=== PATIENT | female | born 1930 | race Hispanic/Latino ===

== ENCOUNTER 2018-04-04 12:47 | Emergency (ER) | payer MEDICARE ==
[2018-04-04 13:06] VITALS: TEMP 97.9
[2018-04-04] MEDS ORDERED: Tdap Vaccine 0.5 ml Vial (10-64 yrs) IM ONE ×2 (13:37→13:43)
--- NOTE | 2018-04-04 13:42 | ED PDOC ---
HPI: Trauma/Fall - HPI Time Seen by Provider: 04/04/18 13:16 Chief Complaint (Nursing): Upper Extremity Problem/Injury Chief Complaint (Provider): Upper Extremity Problem/Injury History Per: Patient History/Exam Limitations: no limitations Onset/Duration Of Symptoms: Hrs (x7) Associated Symptoms: Dizziness (mild). denies: LOC Additional Complaint(s): 88 y/o female with history of myasthenia gravis and lung CA presents to ER for evaluation s/p a slip and fall in bathroom this morning around 6 am. Patient reports sustaining trauma to her face and left wrist. She has recall of events and reports mild dizziness with nasal and facial pain. Patient reports left wrist laceration on thenar eminence. She denies headache, loss of consciousness, neck pain, change in vision, recent crisis of myasthenia gravis or taking any blood thinners or aspirin. PMD: in [facility] Neurologist: at [facility] Past Medical History Reviewed: Historical Data, Nursing Documentation, Vital Signs Vital Signs: Last Vital Signs Temp 97.9 F 04/04/18 13:04 Pulse 90 04/04/18 13:04 Resp 20 04/04/18 13:04 BP 172/98 H 04/04/18 13:04 Pulse Ox 98 04/04/18 13:04 - Medical History PMH: Anxiety Denies: Chronic Kidney Disease Other PMH: myasthenia gravis - Surgical History Other surgeries: Lung CA - Family History Family History: States: Unknown Family Hx - Social History Current smoker - smoking cessation education provided: No Alcohol: None Drugs: Denies - Immunization History Hx Tetanus Toxoid Vaccination: No Hx Influenza Vaccination: Yes Hx Pneumococcal Vaccination: No - Allergies Allergies/Adverse Reactions: Allergies Allergy/AdvReac Type Severity Reaction Status Date / Time No Known Allergies Allergy Verified 04/04/18 13:06 Review of Systems ROS Statement: Except As Marked, All Systems Reviewed And Found Negative Constitutional: Positive for: Other (Facial pain) Eyes: Negative for: Vision Change Musculoskeletal: Positive for: Hand Pain (Left wrist). Negative for: Neck Pain Skin: Positive for: Other (Laceration to left wrist) Neurological: Positive for: Dizziness (mild). Negative for: Headache Physical Exam - Reviewed Nursing Documentation Reviewed: Yes Vital Signs Reviewed: Yes - Physical Exam Appears: Positive for: Non-toxic, No Acute Distress Head Exam: Negative for: ATRAUMATIC (Extensive facial ecchymosis and edema) Eye Exam: Positive for: EOMI, PERRL, Other (Raccoon eyes. Extraocular muscles intact) ENT: Positive for: Other (Nasal septum ecchymosis and edema) Neck: Positive for: Normal, Painless ROM, Supple Cardiovascular/Chest: Positive for: Regular Rate, Rhythm, Chest Non Tender. Negative for: Murmur Respiratory: Positive for: Normal Breath Sounds. Negative for: Wheezing Gastrointestinal/Abdominal: Positive for: Normal Exam, Soft. Negative for: Tenderness Back: Positive for: Normal Inspection. Negative for: L CVA Tenderness, R CVA T enderness Extremity: Positive for: Normal ROM, Other (3 cm linear laceration to left wrist) Neurologic/Psych: Positive for: Alert, Oriented (x3), Gait (stable), Other (Strength intact) - Laboratory Results Result Diagrams: 04/04/18 14:05 04/04/18 13:39 - ECG ECG: Positive for: Interpreted By Me ECG Rhythm: Positive for: Sinus Rhythm. Negative for: ST/T Changes Rate: 70 O2 Sat by Pulse Oximetry: 98 (RA) Pulse Ox Interpretation: Normal Medical Decision Making Medical Decision Makin --Workup for trauma and fall --CT Head W/O Contrast --CT Cervical Spine W/O Contrast --CT Maxillofacial W/O Contrast --CXR --Wrist X-Ray --Labs --Laceration repair procedure note laceration repair simple complexity 4cm irrigated and anesthestized w lidocaine 2% 5 4-0 nylon sutures placed w good wound approximation bacitracin placed followup PMD for removal 6-7 days. wound care discussed and sterile dressing placed [id number] Wrist X-Ray FINDINGS: BONES: Osteopenia. No acute fracture. JOINTS: Diffuse joint space narrowing with spurring. SOFT TISSUES: Normal. OTHER FINDINGS: None. IMPRESSION: No demonstrated acute fracture or dislocation. CXR FINDINGS: LUNGS: Stable chronic prominence of the bilateral interstitial markings. Surgical clip in the right paramediastinal region. PLEURA: Tenting of the right hemidiaphragm, stable. No significant pleural effusion identified, no pneumothorax apparent. CARDIOVASCULAR: Aortic atherosclerotic calcifications. Cardiomediastinal silhouette stably enlarged. OSSEOUS STRUCTURES: Unchanged. VISUALIZED UPPER ABDOMEN: Normal. OTHER FINDINGS: Stable tracheal deviation to the right. IMPRESSION: No active disease. Scribe Attestation: Documented by Meenakshi Villarreal, acting as a scribe for Jose Rehman MD. Provider Scribe Attestation: All medical record entries made by the Scribe were at my direction and personally dictated by me. I have reviewed the chart and agree that the record accurately reflects my personal performance of the history, physical exam, medical decision making, and the department course for this patient. I have also personally directed, reviewed, and agree with the discharge instructions and disposition. Disposition - Clinical Impression Clinical Impression: Facial trauma, Wrist laceration, Nasal bone fractures - Patient ED Disposition Is Patient to be Admitted: No Counseled Patient/Family Regarding: Studies Performed, Diagnosis, Need For Followup, Rx Given - Disposition Referrals: Joselo Cedeño MD [Staff Provider] - Disposition: Routine/Home Disposition Time: 16:00 Condition: STABLE Additional Instructions: have sutures removed in 6-7 days via your doctor or clinic, return to ER if need-be use bacitracin 2x daily as directed Instructions: Wound Care (DC), Laceration Repair With Stitches (DC) Forms: [employer] ([place]an)
--- NOTE | 2018-04-04 13:59 | RAD ---
Date of service: 04/04/2018 HISTORY: SOB COMPARISON: Chest radiograph dated 03/19/2016. FINDINGS: LUNGS: Stable chronic prominence of the bilateral interstitial markings. Surgical clip in the right paramediastinal region. PLEURA: Tenting of the right hemidiaphragm, stable. No significant pleural effusion identified, no pneumothorax apparent. CARDIOVASCULAR: Aortic atherosclerotic calcifications. Cardiomediastinal silhouette stably enlarged. OSSEOUS STRUCTURES: Unchanged. VISUALIZED UPPER ABDOMEN: Normal. OTHER FINDINGS: Stable tracheal deviation to the right. IMPRESSION: No active disease.
--- NOTE | 2018-04-04 14:00 | RAD ---
Date of service: 04/04/2018 PROCEDURE: Left Wrist Radiographs. HISTORY: fall trauma COMPARISON: None. FINDINGS: BONES: Osteopenia. No acute fracture. JOINTS: Diffuse joint space narrowing with spurring. SOFT TISSUES: Normal. OTHER FINDINGS: None. IMPRESSION: No demonstrated acute fracture or dislocation.
[2018-04-04] MEDS ORDERED: Lidocaine 2% Inj (20ml) IJ STA (14:07)
[2018-04-04] MEDS ORDERED: Lidocaine 2% Inj (20ml) ONE (14:15)
[2018-04-04 14:40] LABS: BASO % 0.3 % (0.0-2.0); EOS % 0.3 % (0.0-4.0); HEMOGLOBIN 11.3 g/dL (12.0-16.0); LYMPH # 0.5 K/uL (1.0-4.3); LYMPH % 8.6 % (20.0-40.0); MEAN CELL VOLUME 92.4 fl (81.0-99.0); MEAN CORPUSCULAR HEMOGLOBIN 30.9 pg (27.0-31.0); MEAN CORPUSCULAR HGB CONC 33.5 g/dL (33.0-37.0); MEAN PLATELET VOLUME 8.5 fl (7.2-11.7); MONO # 0.6 K/uL (0.0-0.8); NEUT # 4.8 K/uL (1.8-7.0); NEUT % 80.8 % (50.0-75.0); PLATELET COUNT 265 K/uL (130-400); RBC 3.66 Mil/uL (3.80-5.20); RED CELL DISTRIBUTION WIDTH 13.7 % (11.5-14.5); WHITE BLOOD COUNT 5.9 K/uL (4.8-10.8)
[2018-04-04 14:51] LABS: ALB/GLOB RATIO 1.4 (1.0-2.1); ALBUMIN 3.7 g/dL (3.5-5.0); ALT/SGPT 20 U/L (9-52); AST/SGOT 23 U/L (14-36); BLOOD UREA NITROGEN 27 mg/dl (7-17); GFR NON-AFRICAN AMERICAN > 60
[2018-04-04 15:36] LABS: BANDS 2 % (0-2); BASOPHIL 1 % (0-2); LYMPHOCYTE 2 % (20-50); METAMYELOCYTE 1 % (0-0); MONOCYTE 6 % (0-10); MYELOCYTE 2 % (0-0); NEUTROPHIL 85 % (42-75); REACTIVE LYMPHOCYTES 1 % (0-0); TOTAL CELLS COUNTED 100
[2018-04-04 15:37] LABS: HYPOCHROMIC SLIGHT; PLATELET ESTIMATE NORMAL (NORMAL)
--- NOTE | 2018-04-04 15:44 | CT ---
Date of service: 04/04/2018 PROCEDURE: CT HEAD WITHOUT CONTRAST. HISTORY: r/o ICH COMPARISON: None available. TECHNIQUE: Axial computed tomography images were obtained through the head/brain without intravenous contrast. Radiation dose: Total exam DLP = 725.57 mGy-cm. This CT exam was performed using one or more of the following dose reduction techniques: Automated exposure control, adjustment of the mA and/or kV according to patient size, and/or use of iterative reconstruction technique. FINDINGS: HEMORRHAGE: No intracranial hemorrhage. BRAIN: No mass effect or edema. Atrophy. Chronic microvascular ischemic changes. VENTRICLES: Unremarkable. No hydrocephalus. CALVARIUM: Unremarkable. PARANASAL SINUSES: Unremarkable as visualized. No significant inflammatory changes. MASTOID AIR CELLS: Unremarkable as visualized. No inflammatory changes. OTHER FINDINGS: Bilateral nasal bone fractures. IMPRESSION: No acute intracranial pathology. Bilateral nasal bone fractures.
--- NOTE | 2018-04-04 15:46 | CT ---
Date of service: 04/04/2018 PROCEDURE: CT MAXILLOFACIAL BONES WITHOUT CONTRAST HISTORY: facial trauma include jaw COMPARISON: None available. TECHNIQUE: Contiguous axial CT images of the maxillofacial bones were obtained. Coronal and sagittal reformats were generated. Radiation dose: Total exam DLP = 745.23 mGy-cm. This CT exam was performed using one or more of the following dose reduction techniques: Automated exposure control, adjustment of the mA and/or kV according to patient size, and/or use of iterative reconstruction technique. FINDINGS: NASAL BONES: Minimally depressed bilateral nasal bone fractures ORBITS: Unremarkable. PARANASAL SINUSES/ MASTOIDS: Clear. MAXILLA: Unremarkable. MANDIBLE/ TEMPOROMANDIBULAR JOINTS: Unremarkable. SKULL BASE: Unremarkable. TEMPORAL BONES: Middle ears and mastoid grossly unremarkable. OTHER FINDINGS: Minimally depressed bilateral nasal bone fractures with overlying soft tissue swelling IMPRESSION: Unremarkable non contrast enhanced CT of the maxillofacial bones.
--- NOTE | 2018-04-04 15:48 | CT ---
Date of service: 04/04/2018 PROCEDURE: CT Cervical Spine without contrast HISTORY: trauma r/o fx COMPARISON: None available. TECHNIQUE: Axial computed tomography images were obtained of the cervical spine without the use of intravenous contrast. Coronal and sagittal reformatted images were created and reviewed. Radiation dose: Total exam DLP = 149.58 mGy-cm. This CT exam was performed using one or more of the following dose reduction techniques: Automated exposure control, adjustment of the mA and/or kV according to patient size, and/or use of iterative reconstruction technique. FINDINGS: VERTEBRAE: No fracture. Mild posterior subluxation of C3 on C4. No destructive bony lesion. DISCS/SPINAL CANAL/NEURAL FORAMINA: Multilevel disc space narrowing with disc osteophyte complex formation. PARASPINAL SOFT TISSUES: Unremarkable. OTHER FINDINGS: None. IMPRESSION: No acute fracture. Multilevel degenerative changes.
[2018-04-04 16:11] VITALS: BP 146/86; RESP 18
--- NOTE | 2018-04-06 | CARD ---
APPROVED REPORT Date of service: 04/04/2018 EKG Measurement Heart [id number] <Conclusion> Sinus rhythm with 1st degree AV block Left anterior fascicular block Septal infarct, age undetermined Abnormal ECG
[2018-04-08 12:08] VITALS: PULSE 70; O2SAT 98
== END 2018-04-04 16:13 | disposition home or self-care (01) ==
LOC: H.ER 12:47
DX: S02.2XXA Fracture of nasal bones, initial encounter for closed fracture (principal); S61.512A Laceration without foreign body of left wrist, initial encounter; S09.93XA Unspecified injury of face, initial encounter; W19.XXXA Unspecified fall, initial encounter; Y92.002 Bathroom of unspecified non-institutional (private) residence as the place of occurrence of the external cause; F41.9 Anxiety disorder, unspecified; G70.00 Myasthenia gravis without (acute) exacerbation; I44.0 Atrioventricular block, first degree; J39.8 Other specified diseases of upper respiratory tract; Z85.118 Personal history of other malignant neoplasm of bronchus and lung